=== PATIENT | female | born 1935 | race Caucasian/White ===

== ENCOUNTER 2018-09-27 16:16 | Observation (INO) | payer MEDICARE ==
[~2018-09-27] VITALS: Ht 160 cm; Wt 66.2 kg
[~2018-09-27 16:16] MED LIST: ATENOLOL50 MG PO; AUGMENTIN875TAB OR; CIPROFLOXACN500 MG PO; CRESTOR5 MG PO; NEXIUM40 M1 PO; PRIMIDONE50 MG PO
--- NOTE | 2018-09-27 16:24 | NUR ---
PT TO ROOM VIA WHEELCHAIR AND REPORTS MIDSTERNAL CHEST PRESSURE X 2 DAYS. PT REPORTS SOB WELL. EKG COMPLETED.
--- NOTE | 2018-09-27 17:06 | NUR ---
PT MEDICATED PER ORDERED. PT PAIN NOW 11/08. PT APPEARS TO BE ANXIOUS, RR 20. MONITOR SHOWING SINUS ON THE MONITOR. CALL GLOVER WITHIN REACH.
[2018-09-27 17:08] LABS: HEMATOCRIT 38.8 % (37.0-47.0); HEMOGLOBIN 12.5 g/dl (12.0-16.0); IMMATURE GRANULOCYTES 0.4 % (0.0-5.0); MEAN CELL VOLUME 97.2 fL CALC (80.0-100.0); MEAN CORPUSCULAR HGB 31.3 pG CALC (26.0-32.0); MEAN CORPUSCULAR HGB CONC 32.2 g/L CALC (32.0-36.0); NEUT# 4.66 thou/uL (2.00-7.15); RED BLOOD COUNT 3.99 mill/uL (4.20-5.60); RED CELL DISTRI WIDTH 16.7 % (11.5-15.5)
[2018-09-27] MEDS ORDERED: XANAX0.5 MG PO (17:18)
[2018-09-27] MEDS ORDERED: DONEPEZIL5 MG PO (17:20)
[2018-09-27 17:23] LABS: ALBUMIN 4.3 g/dL (3.2-5.0); ALKALINE PHOSPHATASE 111 u/l (38-126); ANION GAP 12 (6-22 (CALC)); BILIRUBIN, TOTAL 0.3 mg/dL (0.0-1.4); BUN 18 mg/dL (8-23); BUN/CREATININE RATIO 24 (12-20 (CALC)); CARBON DIOXIDE 26 mmol/l (22-30); CHLORIDE 107 mmol/l (95-108); CREATININE 0.7 mg/dL (0.5-1.0); GFR > 60 ML/MIN (>=60 (CALC)); GFR FOR AFR.AMER. > 60 ML/MIN (>=60 (CALC)); LIPASE 91 u/l (23-300); SGOT/AST 28 u/l (9-36); SODIUM 141 mmol/l (137-146); TOTAL PROTEIN 7.1 g/dL (6.3-8.2)
--- NOTE | 2018-09-27 17:45 | NUR ---
PT RESTING IN STRETCHER IN NAD. CALL ADALBERTO DIAZ. MONITOR SHOWING 68, SR. PT AND AWARE OF PENDING RESULTS AND WAIT TIME.
--- NOTE | 2018-09-27 18:15 | NUR ---
PT REPORTS PRESSURE IN CHEST IS NOW AT A 5/10. PT LAUGHING AND TALKING TO FAMILY AT BEDSIDE. PT AWARE OF PENDING RESULTS AND WAIT TIME.
--- NOTE | 2018-09-27 18:32 | NUR ---
MD AT BEDSIDE TO DISCUSS PLANS FOR ADMISSION.
--- NOTE | 2018-09-27 18:45 | NUR ---
REPORT TO CARMEL JULES.
--- NOTE | 2018-09-27 18:57 | NUR ---
IN ROOM INTRODUCED SELF TO PT. NO C/O PT. MADE AWARE OF ADMISSION, VERBALIZED UNDERSTANDING.
--- NOTE | 2018-09-27 19:57 | NUR ---
PT. AWAITING TRANSFER TO [facility]. NO C/O.
--- NOTE | 2018-09-27 20:08 | NUR ---
Admission Note Report Given to: NIEVES GÓMEZ Transported by: Wheelchair X Stretcher Transported with: X Nurse Transporter X Patent IV O2 X Book Illustrator
--- NOTE | 2018-09-27 20:10 | NUR ---
PT. TAKEN TO [facility] FLOOR VIA STRETCHER.
[2018-09-27 20:15] VITALS: BP 159/73
--- NOTE | 2018-09-27 20:15 | NUR ---
RECEIVED REPORT FROM ER NURSE JORGE A TRANSPORTED VIA BED, PATIENT SETTLED IN BED, INSTRUCTED ON THE CALL LIGHT SYSTEM.
[2018-09-27 21:53] VITALS: BP 148/78
--- NOTE | 2018-09-27 22:30 | NUR ---
PATIENT ALERT AND ORIENTED ABLE TO MAKE NEEDS KNOWN, WITH SALINE LOCK ON RAC G20 PATENT ANF FLUSHES WELL, ON TELE SB 57, LAST BM 09/27, PATIENT STATED RELIEF FROM CHEST PAIN, IN ROOM, CALL LIGHT AT REACH.
[2018-09-27 23:47] VITALS: BP 138/70
--- NOTE | 2018-09-28 | NUR ---
PATIENT APPEARS TO BE SLEEPING, EVEN UNLABORED BREATHING CALL LIGHT AT REACH, WITH PATIENT.
[2018-09-28 00:07] VITALS: BP 132/64
--- NOTE | 2018-09-28 04:25 | NUR ---
PATIENT RESTING IN BED, REMAINS ON TELE SB 53, EVEN UNLABORED BREATHING, DENIES PAIN OR DISCOMFORT CALL LIGHT AT REACH.
[2018-09-28 05:03] VITALS: BP 140/62
--- NOTE | 2018-09-28 07:10 | NUR ---
REPORT RECEIVED FROM CARMEL WATTS;PT RESTING IN BED WITH SPOUSE AT BEDSIDE;INTRODUCED SELF TO PT AND POC DISCUSSED;RESPIRATIONS EVEN AND UNLABORED ON RA;PT DENIES ANY CURRENT CHEST PAIN OR PRESSURE;TELE MONITORING IN PLACE;PT ENCOURAGED TO CALL FOR ASSISTANCE IF NEEDED;FALL PRECAUTIONS IN PLACE WITH BED IN THE LOWEST POSITION AND CALL LIGHT IN REACH;WILL CONTINUE TO MONITOR
[2018-09-28 08:28] VITALS: BP 134/76
--- NOTE | 2018-09-28 08:30 | NUR ---
PT RESTING IN BED WITH SPOUSE AT BEDSIDE;VS OBTAINED AND ASSESSMENT COMPLETED;VS OBTAINED AND ASSESSMENT COMPLETED;PT DENIES ANY CURRENT CHEST PRESSURE OR PAIN,PAIN SCALE AND REPORTING EDUCATED;RESPIRATIONS EVEN AND UNLABORED ON RA,CLEAR LUNG SOUNDS;ABDOMEN DISTENDED/SOFT ON PALPATION AND ACTIVE IN ALL 4 QUADRANTS;STRONG PEDAL PULSES;SKIN INTACT;#20G TO RAC FLUSHED AND PATENT,SITE APPEARS HEALTHY;TELE MONITORING IN PLACE;PT DENIES ANY ADDITIONAL NEEDS AND IS ENCOURAGED TO CALL FOR ASSISTANCE IF NEEDED;FALL PRECAUTIONS IN PLACE WITH CALL LIGHT IN REACH;WILL CONTINUE TO MONITOR
[2018-09-28 10:52] VITALS: BP 122/70
--- NOTE | 2018-09-28 11:09 | NUR ---
PT OOB RESTING IN RECLINER WITH SPOUSE AT BEDSIDE;RESPIRATIONS EVEN AND UNLABORED ON RA;PT DENIES ANY CURRENT PAIN OR NEEDS;TELE MONITORING IN PLACE; AT BEDSIDE DISCUSSING POC INCLUDING D/C HOME, PT VERBALIZES UNDERSTANDING;PT DENIES ANY ADDITIONAL NEEDS AT THIS TIME;AWAITING D/C ORDERS AT THIS TIME;ENCOURAGED TO CALL FOR ASSISTANCE IF NEEDED;CALL LIGHT IN REACH;WILL CONTINUE TO MONITOR
--- NOTE | 2018-09-28 13:45 | NUR ---
ALL DISCHARGE INSTRUCTIONS PROVIDED AT THIS TIME,QUESTIONS ANSWERED;IV SITE REMOVED WITH CATHETER INTACT;PT DENIES ANY ADDITIONAL NEEDS AT THIS TIME;PT REFUSES WHEELCHAIR FOR D/C HOME, PT WILL BE ACCOMPANIED BY SPOUSE FOR DISCHARGE.
--- NOTE | 2018-09-28 13:50 | NUR ---
Discharge instructions given. Patient verbalizes understanding of same. Discharged in stable condition via Ambulatory to Home with spouse. All belongings sent with pt. Pt ambulated with a steady gait for d/c home accompanied by spouse in stable condition.
== END 2018-09-28 13:48 | disposition home or self-care (01) ==
LOC: ED 16:16 → ED-I 18:23 → ED 18:59 → MS2 19:00
PROVIDERS: Emergency Medicine; ADMIT Internal Medicine; ATTEND Internal Medicine
DX: R07.89 Other chest pain (principal); I10 Essential (primary) hypertension; F41.9 Anxiety disorder, unspecified; M19.90 Unspecified osteoarthritis, unspecified site; Z85.3 Personal history of malignant neoplasm of breast; Z90.10 Acquired absence of unspecified breast and nipple; Z79.82 Long term (current) use of aspirin

== ENCOUNTER 2019-05-22 20:57 | Emergency (ER) | payer MEDICARE ==
[~2019-05-22] VITALS: Ht 160 cm; Wt 60.9 kg
[~2019-05-22 20:57] MED LIST changes: +DONEPEZIL5 MG PO; +XANAX0.5 MG PO
[2019-05-22 21:28] LABS: HEMATOCRIT 39.7 % (37.0-47.0); HEMOGLOBIN 12.8 g/dl (12.0-16.0); IMMATURE GRANULOCYTES 0.4 % (0.0-5.0); MEAN CELL VOLUME 96.6 fL CALC (80.0-100.0); MEAN CORPUSCULAR HGB 31.1 pG CALC (26.0-32.0); MEAN CORPUSCULAR HGB CONC 32.2 g/L CALC (32.0-36.0); NEUT# 5.35 thou/uL (2.00-7.15); RED BLOOD COUNT 4.11 mill/uL (4.20-5.60); RED CELL DISTRI WIDTH 16.5 % (11.5-15.5)
[2019-05-22 21:43] LABS: URINE BILIRUBIN - DIPSTICK NEGATIVE (NEGATIVE); URINE BLOOD DIPSTICK NEGATIVE (NEGATIVE); URINE COLOR YELLOW; URINE GLUCOSE - DIPSTICK NEGATIVE (NEGATIVE); URINE KETONE NEGATIVE (NEGATIVE); URINE LEUK ESTERASE TRACE (NEGATIVE); URINE NITRITE - DIPSTICK NEGATIVE (Negative); URINE PH 5.5 (4.5-8.0); URINE PROTEIN - DIPSTICK TRACE mg/dL (NEG-TRACE); URINE SPECIFIC GRAVITY >=1.030; URINE UROBILINOGEN - DIPSTICK 0.2 E.U./dL (0.2)
[2019-05-22 21:52] LABS: ALBUMIN 4.3 g/dL (3.2-5.0); ALKALINE PHOSPHATASE 93 u/l (38-126); ANION GAP 15 (6-22 (CALC)); BUN 21 mg/dL (8-23); BUN/CREATININE RATIO 31 (12-20 (CALC)); CARBON DIOXIDE 25 mmol/l (22-30); CHLORIDE 104 mmol/l (95-108); CREATININE 0.7 mg/dL (0.5-1.0); GFR > 60 ML/MIN (>=60 (CALC)); GFR FOR AFR.AMER. > 60 ML/MIN (>=60 (CALC)); POTASSIUM 4.5 mmol/l (3.5-5.1); SGOT/AST 29 u/l (9-36); SODIUM 140 mmol/l (137-146); TOTAL PROTEIN 7.1 g/dL (6.3-8.2)
[2019-05-22] MEDS ORDERED: ASPIRIN81 MG PO (21:57)
[2019-05-22] MEDS ORDERED: CRESTOR10 MG PO (21:58)
[2019-05-22] MEDS ORDERED: BONE DENSITY PO (21:58)
[2019-05-22 21:59] LABS: BILIRUBIN, TOTAL 0.5 mg/dL (0.0-1.4)
[2019-05-22] MEDS ORDERED: D32000 UNI1 PO (21:59)
[2019-05-22] MEDS ORDERED: CLOPIDOGREL75 MG PO (22:00)
[2019-05-22] MEDS ORDERED: DONEPEZIL5 MG PO (22:00)
[2019-05-22 22:01] LABS: MYOGLOBIN 25 ng/mL (0 - 62)
[2019-05-22] MEDS ORDERED: NASACORT A55 MCG/ACT (22:01)
[2019-05-22] MEDS ORDERED: FISH OIL1000 M2 (22:01)
[2019-05-22] MEDS ORDERED: NITROGLYCERIN0.4 MG (22:02)
[2019-05-22] MEDS ORDERED: ANTIVERT PO (23:15)
[2019-05-22 23:40] VITALS: BP 165/77
== END 2019-05-22 23:40 | disposition home or self-care (01) ==
LOC: ED 20:57
PROVIDERS: Family Medicine
DX: H81.11 Benign paroxysmal vertigo, right ear (principal); I10 Essential (primary) hypertension
CPT/HCPCS: J2060